=== PATIENT | female | born 1935 | race African-American/Black ===

== ENCOUNTER 2016-09-28 23:41 | Emergency (ER) | payer MEDICARE, OTHER ==
[2016-09-29] MEDS ORDERED: DUONEB INH ONE (04:15)
[2016-09-29] MEDS ORDERED: METHYLPRED SOD SUCC 125 MG/2 ML VIAL ONE (04:17)
== END 2016-09-29 06:50 | disposition home or self-care (01) ==
LOC: ER 23:41
DX: R06.00 Dyspnea, unspecified (principal); R07.89 Other chest pain; J20.9 Acute bronchitis, unspecified
CPT/HCPCS: 36415; 71020; 80053; 82553; 83880; 84484; 85025; 87880; 93005; 94640; 96374; 99285; J2930